=== PATIENT | female | born 1990 | race Two or more races ===

== ENCOUNTER 2025-02-20 13:26 | Outpatient (AMB) | payer OTHER, MEDICAID, SELFPAY ==
--- NOTE | 2025-02-20 13:44 | OBCLNT_ITS ---
Vital Signs 02/20/25 13:45 Weight 85.049 kg Weight Measurement Method Standing Scale BP 134/80 H Blood Pressure Source Automatic Cuff Blood Pressure Location Left Lower Arm Position Sitting Respiration 18 Pulse 76 Pulse Source Monitor Temp 97.2 F Temp Source Oral Pulse Oximetry (%) 98 Oxygen Delivery Method Room Air Allergies/Home Meds Allergies & Medications Allergies NKA* Allergy (Uncoded 02/20/25 13:46) Medication Reconciliation No Known Home Medications 02/20/25 [History Confirmed 02/20/25] Intake Visit Data Collection New Patient or Established: New Patient (never been to [facility]) Reason for Visit:: OBI Seen by Clinical Staff ONLY (RN/MA): No Laborer Tanbark Required: Yes Laborer Tanbark's name/title: CHAD BOOGIE MA Do You Feel Safe at Home: Yes Authorities Contacted: N/A PCP or OBGYN visit in last 3 months: Yes Hx Now: Yes Are you currently on any form of Control: No Last menstrual period: 11/15/24 Pain Present Currently: No Pain Scale Used: Atwood-Beatty/Numerical Pain scale:: 0 Smoking Status Smoking Status: Never smoker Questionnaires Covid-19 Vaccine Questionnaire Has patient been vacinated for Covid-19 Have you been vacinated for Covid-19: Yes PHQ-9 PHQ-2 Over the last 2 weeks, how often have you been bothered by any of the following problems? 1. Little interest or pleasure in doing things: not at all 2. Feeling down, depressed, or hopeless: not at all Total score: 0 PHQ-9 3. Trouble falling or staying asleep, or sleeping too much: Not at all 4. Feeling tired or having little energy: Not at all 5. Poor appetite or overeating: Not at all 6. Feeling bad about yourself - or that you are a failure or have let yourself or your family down: Not at all 7. Trouble concentrating on things, such as reading the newspaper or watching television: Not at all 8. Moving or speaking so slowly that other people could have noticed? - Or the opposite - being so fidgety or restless that you have been moving around a lot more than usual: not at all 9. Thoughts that you would be better off or of hurting yourself in some way: Not at all Total score: 0 If you checked off any problems, how difficult have these problems made it for you to do your work, take care of things at home, or get along with other people?: not difficult at all Source: Developed by Drs. Roland Pandey, Yesica Tapia, Romulo Rice and colleagues, with an educational beti from [employer]. Depression screen completed yes Social History Living Situation History Marital Status: Lives With: Family Housing: House Tobacco History Smoking Status: Never smoker Second Hand Smoke Exposure: No Alcohol History Alcohol Intake: Never Domestic Abuse History Do You Feel Safe at Home: Yes History of Present Illness HPI Narrative 34-year-old presenting for her first visit. She has a history of irregular menstrual cycles and is unsure of her last menstrual period, though she estimates it was on November 15. This is her second, with her first resulting in a full-term delivery in 2017 due to a large baby weighing 4082 grams. The patient reports no specific complaints or symptoms related to her current . She denies experiencing nausea or vomiting. The patient's bladder is noted to be full during the visit, which is relevant for the ultrasound examination. An in-office ultrasound was performed, revealing a viable intrauterine with a heartbeat of 167 beats per minute, which was noted to be normal. The measurements indicated a gestational age of 9 weeks and 2 days, which is smaller than expected based on the patient's reported last menstrual period. Obstetric History - GTPAL: G2 T1 P1001 L1 - Current : - Gestational age: 9 weeks 2 days by ultrasound (differs from LMP dating) - Last menstrual period: November 15, 2024 - history: - delivery in 2017, full term. weight 4082 grams. Medical History - History of irregular menstrual cycles Surgical History - section in 2017, full term delivery Social History - Travel: Plans to visit [place] Review of Systems Gastrointestinal: Negative for nausea, vomiting. OB Initial Visit OB Flowsheet OB Flowsheet Initial Weight: Not Recorded Date -?-?-?-?-?-?-?-?-?-?-?-?- EGA Weight BP Alb Glu CTX Pres Fundal ht FHR Mov Dilation Station Effacement Hx Notes Visit Note 02/20/25 -?-?-?-?-?-?-?-?-?-?-?-?- 13w 6d 85.049 kg 134/80 at 9w2d by ultrasound, presents for initial visit. LMP unknown due to irregular menses, possibly around 11/15. No nausea or vomiting. History of full-term in 2017 for macrosomia (4082g). Bedside ultrasound shows viable IUP with FHR 167 bpm; gestational age smaller than expected. Plan: Formal ultrasound for dating and v iability; initiate labs; provide education on hydration, especially for travel to [place]; follow-up after radiology dating scan. Monitor for growth and discuss vs repeat C- section in future visits. Menstrual History Menstrual reliability: approximate (month known) Flow: normal Menstrual regularity: irregular Monthly: Yes Age at menarche: 10 On control pills at conception: No OB History : 2 Para: 1 Hx # Pregnancies: 0 Hx Total # of Abortions (Spontaneous & Elective): 0 # of Living Children: 1 Delivery History 1st : date: 06/04/17 sex: female Delivery type: weight (lbs): 4082.331 g History of depression before or after : No Infection History & Risk Evaluation History of STDs: none HIV risk evaluation: low risk Hepatitis B risk evaluation: low risk Patient or partner has history of Genital Herpes: No Varicella/chicken pox status: immunized Genetic Screening & History Genetic Screening/Teratology Counseling - Includes patient, baby's father, or anyone in either family with: 1. Patient's age 35 years or older as of estimated date of delivery: Yes 2. Thalassemia (Persian, Nauruan, Mediterranean, or Background); MCV less than 80: No 3. Neural Tube Defect (Meningomyelocele, Spina Bifida, or Anencephaly): No 4. Congenital Heart Defect: No 5. Down Syndrome: No 6. Jacek-Sachs (Ashkenazi Religious, Cajun, Jamaican [place]): No 7. Ricco Disease (Ashkenazi Religious): No 8. Familial Dysautonomia (Ashkenazi Religious): No 9. Sickle Cell Disease or Trait (): No 10. Hemophilia or other blood disorders: No 11. Muscular Dystrophy: No 12. Cystic Fibrosis: No 13. Shikha's Chorea: No 14. Mental Retardation/Autism: No 15. Other inherited genetic or chromosomal disorder: No 16. Maternal Metabolic Disorder (EG,TYPE 1 Diabetes, PKU): No 17. Patient or baby's father had a child with defects not listed above: No 18. Recurrent loss or a stillbirth: No 19. Medications (including supplements, vitamins, herbs or otc drugs)/illicit/recreational drugs/alcohol since last menstrual period: No 20. Any other: No Infection History 1. Live with someone with TB or exposed to TB: No 2. Rash or viral illness since last menstrual period: No 3. Hepatitis B,C: No Other (see comments) Source: [employer] Office Procedures OB Clinic LOC & Office Proc's Nursing/Assessment Patient Status: Initial/New Patient OB Clinic Nursing Assessment: Medication Reconciliation, Update PMH in EMR and Vital Signs OB Clinic Coordination of Care: Consent,records obtained, informed consent, Education Simp Pt/Fam, Lab and Imaging orders, Results/Orders obtained and Staff clarify orders Special Needs: Heart tones and Language special needs New Patient Charge New Patient Point Assignment: [id number] New Patient Point Charge: PROGRESSIVE CARE UNIT REGISTERED NURSE Level 3 (9300-2249) Assessment & Plan Diagnosis / Problem List (1) Uterine size date discrepancy, antepartum: Status: Acute (2) Maternal care for unspecified type scar from previous delivery: Status: Acute (3) Supervision of high risk , unspecified, first trimester: Status: Acute Plan Jocelyn Herron is a 34-year-old presenting for her first visit with a history of irregular menstrual cycles and previous delivery in 2017 for macrosomia. Intrauterine Assessment: Patient presents for first visit. Last menstrual period reported as November 15, which would correspond to a gestational age of 12-13 weeks. However, bedside ultrasound reveals a single intrauterine with cardiac activity of 167 bpm, measuring 9 weeks and 2 days. This discrepancy suggests possible dates inaccuracy, likely due to the patient's history of irregular menstrual cycles. Plan: - Schedule formal ultrasound with radiology department for accurate dating and viability assessment - Initiate labs - Provide patient education on hydration, especially during travel - Follow up after ultrasound results are available to establish accurate due date and timeline History of delivery Assessment: Patient has a history of one previous delivery in 2017 at full term due to macrosomia ( weight 4082 grams). This history increases the risk for repeat delivery and potential complications in the current . Plan: - Monitor growth closely throughout - Discuss risks and benefits of vaginal after () versus repeat delivery at subsequent visits - Plan for appropriate mode of delivery based on ongoing assessment of maternal and factors
[2025-02-20 13:45] VITALS: BP 134/80; PULSE 76; RESP 18; TEMP 36.2; O2SAT 98
== END 2025-02-20 14:31 | disposition home or self-care (01) ==
LOC: HODSOBC 13:26
PROVIDERS: Supervising Provider Obstetrics & Gynecology; Visit Provider Obstetrics & Gynecology
DX: O09.521 Supervision of elderly multigravida, first trimester (principal); O09.891 Supervision of other high risk pregnancies, first trimester; O26.841 Uterine size-date discrepancy, first trimester; O09.291 Supervision of pregnancy with other poor reproductive or obstetric history, first trimester; O34.219 Maternal care for unspecified type scar from previous cesarean delivery; Z3A.13 13 weeks gestation of pregnancy
CPT/HCPCS: 76801; 99203; G0463

== ENCOUNTER 2025-07-16 11:07 | Outpatient (AMB) | payer MEDICAID, SELFPAY ==
--- NOTE | 2025-07-16 11:14 | OBCLNT_ITS ---
Vital Signs 07/16/25 11:52 Weight 88.224 kg Weight Measurement Method Standing Scale BP 131/81 H Blood Pressure Source Automatic Cuff Blood Pressure Location Left Upper Arm Position Sitting Respiration 18 Pulse 76 Pulse Source Monitor Temp 97.2 F Temp Source Oral Pulse Oximetry (%) 98 Oxygen Delivery Method Room Air Allergies/Home Meds Allergies & Medications Allergies NKA* Allergy (Uncoded 07/16/25 11:53) Medication Reconciliation clotrimazole 1 % vaginal cream 1 appful vaginal QHS #45 grams 07/16/25 [Rx] Intake Visit Data Collection New Patient or Established: Established Patient (seen at [facility] within 3 years) Reason for Visit:: OBC Seen by Clinical Staff ONLY (RN/MA): No Poolroom/Poolhall Manager Required: Yes Poolroom/Poolhall Manager's name/title: WYATT BOOGIE MA Do You Feel Safe at Home: Yes Authorities Contacted: N/A PCP or OBGYN visit in last 3 months: Yes Date of Last PCP or OBGYN visit: 07/16/25 Hx Now: Yes Are you currently on any form of Control: No Last menstrual period: 11/15/24 Pain Present Currently: No Pain Scale Used: Atwood-Beatty/Numerical Pain scale:: 0 Smoking Status Smoking Status: Never smoker Immunizations Flu Vaccine in the Last 12 Months: No Flu Vaccine Exclusion Criteria: No Exclusion Criteria Questionnaires PHQ-9 PHQ-2 Over the last 2 weeks, how often have you been bothered by any of the following problems? 1. Little interest or pleasure in doing things: not at all 2. Feeling down, depressed, or hopeless: not at all Total score: 0 PHQ-9 3. Trouble falling or staying asleep, or sleeping too much: Not at all 4. Feeling tired or having little energy: Not at all 5. Poor appetite or overeating: Not at all 6. Feeling bad about yourself - or that you are a failure or have let yourself or your family down: Not at all 7. Trouble concentrating on things, such as reading the newspaper or watching television: Not at all 8. Moving or speaking so slowly that other people could have noticed? - Or the opposite - being so fidgety or restless that you have been moving around a lot more than usual: not at all 9. Thoughts that you would be better off or of hurting yourself in some way: Not at all Total score: 0 If you checked off any problems, how difficult have these problems made it for you to do your work, take care of things at home, or get along with other people?: not difficult at all Source: Developed by Drs. Roland Pandey, Yesica Tapia, Romulo Rice and colleagues, with an educational beti from [employer]. Social History Living Situation History Marital Status: Single Lives With: Family Housing: House Tobacco History Smoking Status: Never smoker Second Hand Smoke Exposure: No Alcohol History Alcohol Intake: Never Domestic Abuse History Do You Feel Safe at Home: Yes OB Initial Visit OB Flowsheet OB Flowsheet Initial Weight: Not Recorded Date -?-?-?-?-?-?-?-?-?-?-?-?- EGA Weight BP Alb Glu CTX Pres Fundal ht FHR Mov Dilation Station Effacement Hx Notes Visit Note 02/20/25 -?-?-?-?-?-?-?-?-?-?-?-?- 11w 1d 85.049 kg 134/80 at 9w2d by ultrasound, presents for initial visit. LMP unknown due to irregular menses, possibly around 11/15. No nausea or vomiting. History of full-term in 2017 for macrosomia (4082g). Bedside ultrasound shows viable IUP with FHR 167 bpm; gestational age smaller than expected. Plan: Formal ultrasound for dating and v iability; initiate labs; provide education on hydration, especially for travel to [place]; follow-up after radiology dating scan. Monitor for growth and discuss vs repeat C- section in future visits. 07/16/25 -?-?-?-?-?-?-?-?-?-?-?-?- 32w 0d 88.224 kg 131/81 absent cephalic 32 136 active 37 follow up in 2 weeks Menstrual History Flow: normal Menstrual regularity: regular Monthly: Yes Age at menarche: 8 On control pills at conception: No OB History : 2 Para: 1 # of Living Children: 1 Delivery History 1st : Child's name: NA date: 06/04/17 sex: female Delivery type: History of depression before or after : No Infection History & Risk Evaluation History of STDs: none HIV risk evaluation: low risk Hepatitis B risk evaluation: low risk Patient or partner has history of Genital Herpes: No Varicella/chicken pox status: immunized Genetic Screening & History Genetic Screening/Teratology Counseling - Includes patient, baby's father, or anyone in either family with: 1. Patient's age 35 years or older as of estimated date of delivery: Yes 2. Thalassemia (Occitan, Lithuanian, Mediterranean, or Background); MCV less than 80: No 3. Neural Tube Defect (Meningomyelocele, Spina Bifida, or Anencephaly): No 4. Congenital Heart Defect: No 5. Down Syndrome: No 6. Jacek-Sachs (Ashkenazi Temple, Cajun, Kazakh [place]): No 7. Ricco Disease (Ashkenazi Temple): No 8. Familial Dysautonomia (Ashkenazi [place]): No 9. Sickle Cell Disease or Trait (): No 10. Hemophilia or other blood disorders: No 11. Muscular Dystrophy: No 12. Cystic Fibrosis: No 13. Stoughton's Chorea: No 14. Mental Retardation/Autism: No 15. Other inherited genetic or chromosomal disorder: No 16. Maternal Metabolic Disorder (EG,TYPE 1 Diabetes, PKU): No 17. Patient or baby's father had a child with defects not listed above: No 18. Recurrent loss or a stillbirth: No 19. Medications (including supplements, vitamins, herbs or otc drugs)/illic it/recreational drugs/alcohol since last menstrual period: No 20. Any other: No Infection History 1. Live with someone with TB or exposed to TB: No 2. Rash or viral illness since last menstrual period: No 3. Hepatitis B,C: No Other (see comments) Source: [employer] [place] [employer] [employer] Results Objective Imaging: done Dr Lebron 05/23/2025 Office Procedures OBC Clinic LOC & Office Proc's Nursing/Assessment Patient Status: Established Patient OB Clinic Nursing Assessment: Medication Reconciliation, Update PMH in EMR and Vital Signs OB Clinic Coordination of Care: Consent,records obtained, informed consent, Education Simp Pt/Fam, Lab and Imaging orders and Staff clarify orders Special Needs: Heart tones Established Patient Charge Established Patient Point Assignment: 105 Established Patient Point Charge: EP Level 3 (80-115) Assessment & Plan Diagnosis / Problem List (1) Supervision of high risk , unspecified, first trimester: Status: Acute (2) Maternal care for unspecified type scar from previous delivery: Status: Acute Plan: 35 years at 32 weeks and she is a transfer from [facility] and is a previous c section Dating by 18.[address] Lebron in March 2025 Plan repeat LTCS on 09/05/2025t 12.30 pm follow up prental vist in 2 weeks here she has vaginal itching and positive for Laura albicans in the past (3) Vaginitis affecting in second trimester, antepartum: Status: Acute (4) Advanced maternal age (AMA) in : Status: Acute
[2025-07-16 11:52] VITALS: BP 131/81; PULSE 76; RESP 18; TEMP 36.2; O2SAT 98
== END 2025-07-16 12:08 | disposition home or self-care (01) ==
LOC: HODSOBC 11:07
PROVIDERS: Supervising Provider Obstetrics & Gynecology; Visit Provider Obstetrics & Gynecology
DX: O09.523 Supervision of elderly multigravida, third trimester (principal); O09.293 Supervision of pregnancy with other poor reproductive or obstetric history, third trimester; O34.211 Maternal care for low transverse scar from previous cesarean delivery; O09.893 Supervision of other high risk pregnancies, third trimester; O23.593 Infection of other part of genital tract in pregnancy, third trimester; N76.0 Acute vaginitis; Z3A.32 32 weeks gestation of pregnancy
CPT/HCPCS: 99213; G0463

== ENCOUNTER 2025-07-23 09:24 | Outpatient (AMB) | payer MEDICAID, SELFPAY ==
--- NOTE | 2025-07-23 09:32 | OBCLNT_ITS ---
Allergies/Home Meds Allergies & Medications Allergies NKA* Allergy (Uncoded 07/16/25 11:53) Intake Visit Data Collection New Patient or Established: Established Patient (seen at [facility] within 3 years) Reason for Visit:: DISABILITY FORMS Consent obtained for Telemed Visit: Yes Seen by Clinical Staff ONLY (RN/MA): No Methane Gas Collection System Operator Required: Yes Methane Gas Collection System Operator's name/title: FABIO VEGA Do You Feel Safe at Home: Yes Authorities Contacted: N/A Hx Now: Yes Smoking Status Smoking Status: Never smoker Questionnaires PHQ-9 PHQ-2 Over the last 2 weeks, how often have you been bothered by any of the following problems? 1. Little interest or pleasure in doing things: not at all PHQ-9 8. Moving or speaking so slowly that other people could have noticed? - Or the opposite - being so fidgety or restless that you have been moving around a lot more than usual: not at all Source: Developed by Drs. Roland Pandey, Yesica Tapia, Romulo Rice and colleagues, with an educational beti from [employer]. 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 Care OB Visit Log OB Flowsheet Initial Weight: Not Recorded Date -?-?-?-?-?-?-?-?-?-?-?-?- EGA Weight BP Alb Glu CTX Pres Fundal ht FHR Mov Dilation Station Effacement Hx Notes Visit Note 02/20/25 -?-?-?-?-?-?-?-?-?-?-?-?- 11w 1d 85.049 kg 134/80 at 9w2d by ultrasound, presents for initial visit. LMP unknown due to irregular menses, possibly around 11/15. No nausea or vomiting. History of full-term in 2017 for macrosomia (4082g). Bedside ultrasound shows viable IUP with FHR 167 bpm; gestational age smaller than expected. Plan: Formal ultrasound for dating and v iability; initiate labs; provide education on hydration, especially for travel to [place]; follow-up after radiology dating scan. Monitor for growth and discuss vs repeat C- section in future visits. 07/16/25 -?-?-?-?-?-?-?-?-?-?-?-?- 32w 0d 88.224 kg 131/81 absent cephalic 32 136 active 37 follow up in 2 weeks 07/23/25 -?-?-?-?-?-?-?-?-?-?-?-?- 33w 0d KAMILAH Calculator Estimated Delivery Date Method Current WG Current Estimate 09/10/25 Ultrasound #1 33w 0d Other Estimates 08/22/25 LMP (Uncertain) 35w 5d Notes Visit Date: 07/23/25 Last Updated by: Destiny Dimas MD 35 years old , AMA Previous LTCS and EDC by an 18.3 week US done 04/12/[address] Bernardino JAIME carrier / Plan repeat LTCS at 39 weeks / Glucose test done at [facility] and is normal / Plan C section around 39 weeks telephone visit today and requesting disability starting now as she works in a [employer] house 33 weeks today and can start disability now Visit Date: 07/16/25 Last Updated by: Destiny Dimas MD 35 years old , AMA Previous LTCS and EDC by an 18.3 week US done 04/12/[address] Bernardino JAIME carrier / Plan repeat LTCS at 39 weeks / Glucose test done at [facility] and is normal / Plan C section around 39 weeks Office Procedures OBC Clinic LOC & Office Proc's Telehealth If patient is seen using Teleconference methods, complete New/Est section, but DO NOT shikha points only shikha the correct Telemed visit type Telemed Phone/Video with patient at home & ,[place],EMPLOYMENT LAW SPECIALIST: Yes Assessment & Plan Diagnosis / Problem List (1) Advanced maternal age (AMA) in : Status: Acute Plan: continue care (2) Maternal care for unspecified type scar from previous delivery: Status: Acute Qualifiers: Previous scar type: low transverse Qualified Code(s): O34.211 - Maternal care for low transverse scar from previous delivery Assessment and Plan: Plan repeat LTCS at 39 weeks (3) Pelvic pressure in female: Status: Acute Plan: start disability from now . Follow up as scheduled for in person appointment
== END 2025-07-23 10:29 | disposition home or self-care (01) ==
LOC: HODSOBC 09:24
PROVIDERS: PCP Family Medicine; Referring Provider Family Medicine; Supervising Provider Obstetrics & Gynecology; Visit Provider Obstetrics & Gynecology
DX: O09.523 Supervision of elderly multigravida, third trimester (principal); O09.293 Supervision of pregnancy with other poor reproductive or obstetric history, third trimester; O34.211 Maternal care for low transverse scar from previous cesarean delivery; Z3A.33 33 weeks gestation of pregnancy
CPT/HCPCS: 99212; G0463

== ENCOUNTER 2025-08-08 09:46 | Outpatient (AMB) | payer MEDICAID, SELFPAY ==
[2025-08-08 10:00] VITALS: BP 126/81; PULSE 97; RESP 18; TEMP 36.6; O2SAT 98; BMI 33.1
--- NOTE | 2025-08-08 10:00 | OBCLNT_ITS ---
Vital Signs 08/08/25 10:00 Height 1.65 m Height Method Stated Weight 90.265 kg Weight Measurement Method Standing Scale BMI 33.1 BP 126/81 Blood Pressure Source Automatic Cuff Blood Pressure Location Left Upper Arm Position Sitting Respiration 18 Pulse 97 Pulse Source Monitor Temp 97.8 F Temp Source Oral Pulse Oximetry (%) 98 Oxygen Delivery Method Room Air Allergies/Home Meds Allergies & Medications Allergies NKA* Allergy (Uncoded 08/08/25 10:01) Medication Reconciliation clotrimazole 1 % vaginal cream 1 appful vaginal QHS #45 grams 07/16/25 [Rx Confirmed 08/08/25] Immunizations Immunizations Flu Vaccine in the Last 12 Months: Yes Date of most recent flu vaccination: 07/11/25 Flu Vaccine Exclusion Criteria: Already Received Care OB Visit Log OB Flowsheet Initial Weight: Not Recorded Date -?-?-?-?-?-?-?-?-?-?-?-?- EGA Weight BP Alb Glu CTX Pres Fundal ht FHR Mov Dilation Station Effacement Hx Notes Visit Note 02/20/25 -?-?-?-?-?-?-?-?-?-?-?-?- 11w 1d 85.049 kg 134/80 at 9w2d by ultrasound, presents for initial visit. LMP unknown due to irregular menses, possibly around 11/15. No nausea or vomiting. History of full-term in 2017 for macrosomia (4082g). Bedside ultrasound shows viable IUP with FHR 167 bpm; g estational age smaller than expected. Plan: Formal ultrasound for dating and v iability; initiate labs; provide education on hydration, especially for travel to [place]; follow-up after radiology dating scan. Monitor for growth and discuss vs repeat C- section in future visits. 07/16/25 -?-?-?-?-?-?-?-?-?-?-?-?- 32w 0d 88.224 kg 131/81 absent cephalic 32 136 active 37 follow up in 2 weeks 07/23/25 -?-?-?-?-?-?-?-?-?-?-?-?- 33w 0d 08/08/25 -?-?-?-?-?-?-?-?-?-?-?-?- 35w 2d 90.265 kg 126/81 absent cephalic 35 130 active 0 GBS taken explained r/b and options of repeat LTCS KAMILAH Calculator Estimated Delivery Date Method Current WG Current Estimate 09/10/25 Ultrasound #1 35w 2d Other Estimates 08/22/25 LMP (Uncertain) 38w 0d Notes Visit Date: 08/08/25 Last Updated by: Destiny Dimas MD scheduled for repeat LTCS on at 12.30 pm at [facility] Follow up in 1 week Visit Date: 07/23/25 Last Updated by: Destiny Dimas MD 35 years old , AMA Previous LTCS and EDC by an 18.3 week US done 04/12/[address] Bernardino JAIME carrier / Plan repeat LTCS at 39 weeks / Glucose test done at [facility] and is normal / Plan C section around 39 weeks telephone visit today and requesting disability starting now as she works in a [employer] house 33 weeks today and can start disability now Visit Date: 07/16/25 Last Updated by: Destiny Dimas MD 35 years old , AMA Previous LTCS and EDC by an 18.3 week US done 04/12/[address] Bernardino JAIME carrier / Plan repeat LTCS at 39 weeks / Glucose test done at [facility] and is normal / Plan C section around 39 weeks Office Procedures OBC Clinic LOC & Office Proc's Nursing/Assessment Patient Status: Established Patient OB Clinic Nursing Assessment: Medication Reconciliation, Update PMH in EMR and Vital Signs OB Clinic Coordination of Care: AMA, Complex Care and Chronic Disease 1-5, C onsent,records obtained, informed consent, Education Simp Pt/Fam, 1 Ins Authorization, Lab and Imaging orders, Results/Orders obtained and Staff clarify orders Special Needs: Heart tones Established Patient Charge Established Patient Point Assignment: 170 Established Patient Point Charge: EP Level 5 (160-above) Assessment & Plan Diagnosis / Problem List (1) Maternal care for unspecified type scar from previous delivery: Status: Acute Qualifiers: Previous scar type: low transverse Qualified Code(s): O34.211 - Maternal care for low transverse scar from previous delivery (2) Advanced maternal age (AMA) in : Status: Acute Plan HISTORY OF PRESENT ILLNESS AI Consent obtained: I, Dr. Dimas, have obtained verbal consent from the patient, to be recorded during this encounter which may include, but not limited to, medical history, examination, treatment plans, and relevant health information. Patient was informed that recording will be read and reviewed by myself before inclusion in the medical chart. Recordings will be maintained in accordance with State and Federal law and only for a limited period of time for validation purposes, then destroyed and not retained. The patient presents for evaluation of . She is accompanied by an youth specialist. She is currently in her second , with a gestational age of 35 weeks and 2 days. She has expressed a desire to have more children in the future. She has been scheduled for a on 09/05/2025 at 12:30 PM due to a previous C- section. She has an upcoming appointment on 08/21/2025 to monitor the growth and movement of the baby. PHYSICAL EXAM Cardiovascular: heart rate is 127-130 beats per minute. ASSESSMENT AND PLAN 1. : - Currently 35 weeks and 2 days . A is scheduled for 09/05/2025 at 12:30 PM due to a previous . - Risks associated with the procedure, including infection, bleeding, and potential injury to surrounding organs, have been discussed. A vaginal culture will be obtained today to check for the presence of GBS bacteria, which could necessitate closer monitoring of the baby. - Advised to seek immediate medical attention if water breaks, labor commences prematurely, or if there are any concerns regarding movement. Follow-up: The patient will follow up next week.
== END 2025-08-08 10:47 | disposition home or self-care (01) ==
PROVIDERS: Supervising Provider Obstetrics & Gynecology; Visit Provider Obstetrics & Gynecology
DX: O09.293 Supervision of pregnancy with other poor reproductive or obstetric history, third trimester (principal); O34.211 Maternal care for low transverse scar from previous cesarean delivery; O09.523 Supervision of elderly multigravida, third trimester; Z3A.35 35 weeks gestation of pregnancy; Z36.85 Encounter for antenatal screening for Streptococcus B
CPT/HCPCS: 99215; G0463

== ENCOUNTER 2025-08-20 09:08 | Outpatient (AMB) | payer MEDICAID, SELFPAY ==
--- NOTE | 2025-08-20 09:42 | OBCLNT_ITS ---
Vital Signs 08/20/25 09:49 Height 1.65 m Height Method Stated Weight 89.811 kg Weight Measurement Method Standing Scale BMI 33.0 BP 126/74 Blood Pressure Source Automatic Cuff Blood Pressure Location Right Upper Arm Position Sitting Respiration 18 Pulse 87 Pulse Source Monitor Temp 98.2 F Temp Source Oral Pulse Oximetry (%) 98 Oxygen Delivery Method Room Air Allergies/Home Meds Allergies & Medications Allergies NKA* Allergy (Uncoded 08/20/25 09:50) Medication Reconciliation clotrimazole 1 % vaginal cream 1 appful vaginal QHS #45 grams 07/16/25 [Rx Confirmed 08/20/25] Immunizations Immunizations Flu Vaccine in the Last 12 Months: Yes Flu Vaccine Exclusion Criteria: Already Received Care OB Visit Log OB Flowsheet Initial Weight: Not Recorded Date -?-?-?-?-?-?-?-?-?-?-?-?- EGA Weight BP Alb Glu CTX Pres Fundal ht FHR Mov Dilation Station Effacement Hx Notes Visit Note 02/20/25 -?-?-?-?-?-?-?-?-?-?-?-?- 11w 1d 85.049 kg 134/80 at 9w2d by ultrasound, presents for initial visit. LMP unknown due to irregular menses, possibly around 11/15. No nausea or vomiting. History of full-term in 2017 for macrosomia (4082g). Bedside ultrasound shows viable IUP with FHR 167 bpm; gestational age smaller than expected. Plan: Formal ultrasound for dating and v iability; initiate labs; provide education on hydration, especially for travel to [place]; follow-up after radiology dating scan. Monitor for growth and discuss vs repeat C- section in future visits. 07/16/25 -?-?-?-?-?-?-?-?-?-?-?-?- 32w 0d 88.224 kg 131/81 absent cephalic 32 136 active 37 follow up in 2 weeks 07/23/25 -?-?-?-?-?-?-?-?-?-?-?-?- 33w 0d 08/08/25 -?-?-?-?-?-?-?-?-?-?-?-?- 35w 2d 90.265 kg 126/81 absent cephalic 35 130 active 0 GBS taken explained r/b and options of repeat LTCS 08/20/25 -?-?-?-?-?-?-?-?-?-?-?-?- 37w 0d 89.811 kg 126/74 absent cephalic 37 135 active GBS negative / Plan repeat LTCS on 09/05/2025 at 1230 KAMILAH Calculator Estimated Delivery Date Method Current WG Current Estimate 09/10/25 Ultrasound #1 37w 0d Other Estimates 08/22/25 LMP (Uncertain) 39w 5d Notes Visit Date: 08/08/25 Last Updated by: Destiny Dimas MD scheduled for repeat LTCS on at 12.30 pm at [facility] Follow up in 1 week Visit Date: 07/23/25 Last Updated by: Destiny Dimas MD 35 years old , AMA Previous LTCS and EDC by an 18.3 week US done 04/12/[address] Bernardino JAIME carrier / Plan repeat LTCS at 39 weeks / Glucose test done at [facility] and is normal / Plan C section around 39 weeks telephone visit today and 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 Visit Date: 07/16/25 Last Updated by: Destiny Dimas MD 35 years old , AMA Previous LTCS and EDC by an 18.3 week US done 04/12/[address] Bernardino JAIME carrier / Plan repeat LTCS at 39 weeks / Glucose test done at [facility] and is normal / Plan C section around 39 weeks Office Procedures OBC Clinic LOC & Office Proc's Nursing/Assessment Patient Status: Established Patient OB Clinic Nursing Assessment: Medication Reconciliation, Update PMH in EMR and Vital Signs OB Clinic Coordination of Care: Consent,records obtained, informed consent, Education Simp Pt/Fam, Lab and Imaging orders, Results/Orders obtained and Staff clarify orders Special Needs: Heart tones Established Patient Charge Established Patient Point Assignment: 110 Established Patient Point Charge: EP Level 3 (80-115) Assessment & Plan Diagnosis / Problem List (1) Advanced maternal age (AMA) in : Status: Acute (2) Maternal care for unspecified type scar from previous delivery: Status: Acute Qualifiers: Previous scar type: low transverse Qualified Code(s): O34.211 - Maternal care for low transverse scar from previous delivery (3) 37 weeks gestation of : Status: Acute Additional Assessment 35 years old with prior c section at 37 weeks / appropriate growth and follow up in 1 week / Repeat LTCS at 39 weeks
[2025-08-20 09:49] VITALS: BP 126/74; PULSE 87; RESP 18; TEMP 36.8; O2SAT 98; BMI 33.0
== END 2025-08-20 10:28 | disposition home or self-care (01) ==
LOC: HODSOBC 09:08
PROVIDERS: Supervising Provider Obstetrics & Gynecology; Visit Provider Obstetrics & Gynecology
DX: O09.523 Supervision of elderly multigravida, third trimester (principal); O09.293 Supervision of pregnancy with other poor reproductive or obstetric history, third trimester; O34.211 Maternal care for low transverse scar from previous cesarean delivery; Z3A.37 37 weeks gestation of pregnancy
CPT/HCPCS: 99213; G0463

== ENCOUNTER 2025-08-27 11:11 | Outpatient (AMB) | payer MEDICAID, SELFPAY ==
--- NOTE | 2025-08-27 11:14 | AMB.OBPNC ---
Vital Signs 08/27/25 11:17 Height 1.65 m Height Method Stated Weight 91.342 kg Weight Measurement Method Standing Scale BMI 33.5 BP 118/78 Blood Pressure Source Automatic Cuff Blood Pressure Location Left Upper Arm Position Sitting Respiration 16 Pulse 83 Pulse Source Monitor Temp 97.8 F Temp Source Oral Pulse Oximetry (%) 98 Oxygen Delivery Method Room Air Allergies/Home Meds Allergies & Medications Allergies No Known Allergies Allergy (Verified 09/05/25 05:49) Medication Reconciliation vits no.130-ferrous fum 27 mg iron-folic acid 800 mcg tablet ( Vitamin) 1 tab PO QDAY 09/05/25 [History Confirmed 09/05/25] hydrocodone 5 mg-acetaminophen 325 mg tablet 1 tab PO Q4HR PRN Patient rated pain 7 to 8 #10 tabs 09/06/25 [Rx] Immunizations Immunizations Flu Vaccine in the Last 12 Months: Yes Flu Vaccine Exclusion Criteria: Already Received Care OB Visit Log OB Flowsheet Initial Weight: Not Recorded Date <del>?</del> EGA Weight BP Alb Glu CTX Pres Fundal ht FHR Mov Dilation Station Effacement Hx Notes Visit Note 02/20/25 <del>?</del> 11w 1d 85.049 kg 134/80 at 9w2d by ultrasound, presents for initial visit. LMP unknown due to irregular menses, possibly around 11/15. No nausea or vomiting. History of full-term in 2017 for macrosomia (4082g). Bedside ultrasound shows viable IUP with FHR 167 bpm; gestational age smaller than expected. Plan: Formal ultrasound for dating and viability; initiate labs; provide education on hydration, especially for travel to [place]; follow-up after radiology dating scan. Monitor for growth and discuss vs repeat in future visits. 07/16/25 <del>?</del> 32w 0d 88.224 kg 131/81 absent cephalic 32 136 active 37 follow up in 2 weeks 07/23/25 <del>?</del> 33w 0d 08/08/25 <del>?</del> 35w 2d 90.265 kg 126/81 absent cephalic 35 130 active 0 GBS taken explained r/b and options of repeat LTCS 08/20/25 <del>?</del> 37w 0d 89.811 kg 126/74 absent cephalic 37 135 active GBS negative / Plan repeat LTCS on 09/05/2025 at 1230 08/27/25 <del>?</del> 38w 0d 91.342 kg 118/78 absent cephalic 38 130 active KAMILAH Calculator Estimated Delivery Date Method Current WG Current Estimate 09/10/25 Ultrasound #1 39w 3d Other Estimates 08/22/25 LMP (Uncertain) 42w 1d Notes Visit Date: 08/27/25 Last Updated by: Destiny Dimas MD Patient is scheduled for repeat LTCS on 09/05/2025 at 12.30 pm / bedside US shows active baby and normal Amniotic fluid / cephalic /patient given labor precautions/ R/B and options of c section and she is to go for pre op labs on 09/04/2025 and NPO for 8 hours for repeat LTCS on 09/05/2025 All her questions answered Visit Date: 08/08/25 Last Updated by: Destiny Dimas MD scheduled for repeat LTCS on at 12.30 pm at [facility] Follow up in 1 week Visit Date: 07/23/25 Last Updated by: Destiny Dimas MD 35 years old , AMA Previous LTCS and EDC by an 18.3 week US done 04/12/[address] Bernardino JAIME carrier / Plan repeat LTCS at 39 weeks / Glucose test done at [facility] and is normal / Plan C section around 39 weeks telephone visit today and 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 Visit Date: 07/16/25 Last Updated by: Destiny Dimas MD 35 years old , AMA Previous LTCS and EDC by an 18.3 week US done 04/12/[address] Bernardino JAIME carrier / Plan repeat LTCS at 39 weeks / Glucose test done at [facility] and is normal / Plan C section around 39 weeks Office Procedures OBC Clinic LOC & Office Proc's Nursing/Assessment Patient Status: Established Patient OB Clinic Nursing Assessment: Medication Reconciliation, Update PMH in EMR and Vital Signs OB Clinic Coordination of Care: AMA, Complex Care and Chronic Disease 1-5, Consent,records obtained, informed consent, Education Simp Pt/Fam, 1 Ins Authorization, Lab and Imaging orders, Results/Orders obtained and Staff clarify orders Special Needs: Heart tones Established Patient Charge Established Patient Point Assignment: 170 Established Patient Point Charge: EP Level 5 (160-above) Assessment & Plan Additional Plan Patient is scheduled for repeat LTCS on 09/05/2025 at 12.30 pm / bedside US shows active baby and normal Amniotic fluid / cephalic /patient given labor precautions/ R/B and options of c section and she is to go for pre op labs on 09/04/2025 and NPO for 8 hours for repeat LTCS on 09/05/2025 All her questions answered
[2025-08-27 11:17] VITALS: BP 118/78; PULSE 83; RESP 16; TEMP 36.6; O2SAT 98; BMI 33.5
== END 2025-08-27 12:08 | disposition home or self-care (01) ==
LOC: HODSOBC 11:11
PROVIDERS: Supervising Provider Obstetrics & Gynecology; Visit Provider Obstetrics & Gynecology
DX: O09.293 Supervision of pregnancy with other poor reproductive or obstetric history, third trimester (principal); O34.211 Maternal care for low transverse scar from previous cesarean delivery; O09.523 Supervision of elderly multigravida, third trimester; Z3A.38 38 weeks gestation of pregnancy
CPT/HCPCS: 99215; G0463

== ENCOUNTER 2025-09-05 04:53 | Inpatient (IN) | payer MEDICAID, SELFPAY ==
[2025-09-05] VITALS (16 sets, daily range): BP systolic 102–154; BP diastolic 48–85; PULSE 72–105; RESP 13–28; TEMP 36.4–37.2; O2SAT 97–100; BMI 35.3
[2025-09-05] MEDS: RINGERS LACTATED 1000 ML 1,000 ML 100 ML IV ×2 (05:57→07:37)
[2025-09-05 06:21] LABS: Amphetamine/Metham Scrn,Ur OB Negative (Negative); Benzoylecgonine Screen, Ur OB Negative (Negative); Opiate Screen,Urine OB Negative (Negative); THC Screen,Urine OB Negative (Negative)
[2025-09-05 06:23] LABS: Basophils # (Auto) 0.0 Thou/mm3 (0.0-0.2); Basophils % (Auto) 0 % (0-2.5); Eosinophils # (Auto) 0.1 Thou/mm3 (0.0-0.5); Eosinophils % (Auto) 2 % (0-10); Hematocrit 36.4 % (36.0-46.0); Hemoglobin 12.4 g/dL (12.0-16.0); Immature Granulocytes Auto 0.08 Thou/mm3 (0.00-0.00); Lymphocytes # (Auto) 1.2 Thou/mm3 (1.0-4.8); Lymphocytes % (Auto) 18 % (10-50); Mean Corpuscular HGB Conc 34.1 g/dl (31.0-37.0); Mean Corpuscular Hemoglobin 28.9 pg (25.0-35.0); Mean Corpuscular Volume 85 fL (80-100); Monocytes # (Auto) 0.7 Thou/mm3 (0.0-0.8); Monocytes % (Auto) 9 % (0-12); Neutrophils # (Auto) 4.8 Thou/mm3 (1.8-7.7); Neutrophils % (Auto) 70 % (37-80); Nucleated Red Blood Cell # 0.00 Thou/mm3 (0.00-0.00); Nucleated Red Blood Cell % 0 /100 WBC (0); Platelet Count 230 Thou/mm3 (140-440); RDW Standard Deviation 49.1 fL (36.4-46.3); Red Blood Count 4.29 Miln/mm3 (4.00-5.20); White Blood Count 6.9 Thou/mm3 (3.6-11.0)
[2025-09-05 07:01] LABS: Syphilis Nonreactive (Nonreactive)
--- NOTE | 2025-09-05 07:30 | PD.LDHP ---
Documentation for date of: 09/05/25 OB Labor/Induct. HPI History of Present Illness Chief complaint: 35 years old previous c section here for repeat LTCS : 2 pregnancies: 0 Living children: 1 History of Abortions: Spontaneous and Elective: 0 History of sections: Yes History of : No Date of last menstrual period: 11/15/24 KAMILAH: 09/10/25 Gestational Age (weeks): 39 Gestational Age (days): 2 Gestational age based on last menstrual period: 42 History of present illness: ?35 Years old G2?P?1at gestational age?39 .2weeks / repeat LTCS No complaints so far Ultrasound see record done 18.3 weeks on 04/12/2025 medical problems obesity Allergies NKDA Surgical history prior c section social history negative Labs Labs: Positive: Rubella Titre, Negative: RPR, Hepatitis B, HIV, Chlamydia, Gonorrhea and Group Beta Strep and Unknown: Herpes Type 1 and Herpes Type 2 Review of Systems Review of Systems Systems Reviewed: All systems reviewed, normal except as documented Past Medical History Past Medical History GASTROINTESTINAL: Positive Obesity Surgical History SURGICAL: Positive Section Meds Home Medications and Allergies Home Medications ?Medication ?Instructions ?Recorded ?Confirmed ?Type vits no.130-ferrous fum 1 tab PO QDAY 09/05/25 09/05/25 History 27 mg iron-folic acid 800 mcg tablet ( Vitamin) Allergies Allergy/AdvReac Type Severity Reaction Status Date / Time No Known Allergies Allergy Verified 09/05/25 05:49 OB Exam Physical Exam Vital signs: Pulse BP 88 123/78 09/05/25 05:47 09/05/25 05:47 Narrative: Size equal to dates uterus non tender Occasional/ contractions non tender FHR is category 1 feta presentation is vertex OB Results Labs 09/05/25 05:45 Labs: Short CBC 09/05/25 Range/Units 05:45 WBC 6.9 (3.6-11.0) Thou/mm3 Hgb 12.4 (12.0-16.0) g/dL Hct 36.4 (36.0-46.0) % Plt Count 230 (140-440) Thou/mm3 OB Assessment & Plan Assessment and Plan (1) Pelvic pressure in female: Status: Acute (2) Advanced maternal age (AMA) in : Status: Acute (3) Maternal care for unspecified type scar from previous delivery: Status: Acute (4) 39 weeks gestation of : Status: Acute Additional Plan Additional Plan Comment: Patient was given the reason for proceeding with surgery. She was given the risk benefits and options. She chose to proceed with the surgery. Risks of surgery to include risk of infection bleeding, possible injury to the surrounding organs like the urinary bladder, intestines, ureter, uterus, tubes, ovaries, nerves, blood vessels, possible risk of wound dehiscence later on or hernia development later on in future. However the surgery is done when the benefits outweigh the risks Possible risks of blood transfusion and options were also discussed. All questions answered Patient willing to proceed with surgery./ Plan to repeat LTCS now (3) Maternal care for unspecified type scar from previous delivery Qualifiers: Previous scar type: low transverse Qualified Code(s): O34.211 - Maternal care for low transverse scar from previous delivery
[2025-09-05] MEDS: ceFAZolin/D5W 2 GM IV 2 GM/100 ML BAG IV (07:32)
[2025-09-05] MEDS: FAMOTIDINE INJ 10 MG/ML VIAL 2 ML 20 MG IV (07:32)
[2025-09-05] MEDS: METOCLOPRAMIDE INJ 5 MG/ML VIAL 2 ML 10 MG IVP (07:32)
--- NOTE | 2025-09-05 08:47 | ESOP_ITS ---
Operative Note - [employer] CASE MANAGER Procedure Date of procedure: 09/05/25 Procedure Performed: repeat LTCS at 39.2 weeks Indication: previous c section AMA 39.2 weeks Pre-Op diagnosis: 39.2 weeks IUP with previous c section Post-Op diagnosis: same Anesthesia type: Spinal Procedure description: After an informed consent patient was taken to the operating room, she was prepped and draped in the usual sterile fashion after receiving spinal anesthesia. A timeout was done. Surgical site infection prophylaxis was given Burgess was in place and draining clear urine SCDs were in place After verification of adequacy of anesthesia, a Pfannansteil incision was made 2 cm above the symphysis pubis and carried laterally on the skin and it was carried down to subcutaneous tissue and then to the rectus fascia, the rectus fascia was from underlying muscles by sharp and blunt dissection Peritoneal cavity was entered atraumatically Akexis extra large retractor was placed Lower uterine segment was well-formed and uterus was dextrorotated partially and was held on the R side to be able to make a low transverse incision in THELMA , Incision made in the lower uterine segment, and amniotic sac ruptured, clear stained amniotic fluid Baby was delivered as cephalic with fundal pressure and head elevation and a LB/Male delivered Cord clamped after 1 minute and cut and baby received by the waiting nursery team Cord blood collected, placenta removed spontaneously and partially manually Uterine cavity clean dry of any remaining membranes with a dry lap, uterine incision closed with the help of 0 Monocryl in 2 layers in a running , interlocking fashion . Hemostasis is good Uterus is firm Both tubes and ovaries look normal Instrument needle and sponge count is correct, hemostasis was checked for again on the uterine incision and it is confirmed Peritoneal closure done with 2-0 Vicryl Rectus abdominis muscles approximated with 2-0 Vicryl/ monocryl Rectus fascia approximated with 0 Vicryl running sutures Subcutaneous tissue irrigated closed with and approximated with 3-0 plain catgut Skin approximated with 4-0 Monocryl. Tape dressing applied with Dermabond ABD dressing placed on top Burgess is draining clear urine EBL is 600 cc Patient delivered a liveborn male Apgars are 8 and 9 Patient tolerated procedure well and was brought to PACU in a stable condition , urine is clear in the Burgess bag . Specimen: none Estimated blood loss (ml): 600 Complications: none Narrative: see procedure Surgical staff Rolando MCDANIEL Operation Date: 09/05/25 12:45 <No data on this case meets the specified criteria> Diagnosis Problem List Completed Was Problem List Reviewed/Reconciled?: Yes
--- NOTE | 2025-09-05 08:53 | PD.LDDELS ---
Data (Lin) Data Hx Section: Yes : 2 : 0 Livin Abortions: Spontaneous & Theraputic: 0 Delivery Data (Lin) Labor Data Induction/Augmentation Agent: None ROM date: 09/05/25 ROM time: 08:14 Amniotic membrane rupture type: Artificial Amniotic fluid description: Clear Delivery Data EDC: 09/10/25 EDC calculated by:: ultrasound Onset of labor date: 09/05/25 Onset of labor time: 08:14 Complete dilation date: 09/05/25 Complete dilation time: 08:14 delivery date: 09/05/25 delivery time: 08:15 Placenta delivery date: 09/05/25 Placenta delivery time: 08:17 Stage 1 total time: Labor - Stage 1 Duration 0 minutes Delivered by: Wing Delivery nurse: Heidi Wigginsorn nurse: Vinicius Vending Attendant at delivery: No Support person(s) at delivery: FOB Other staff at delivery: Gurwinder, SOM Delatorre, OB Or tech Tosha, MAYELIN Juan OR tech student Delivery Method Delivery method: Low Transverse Presentation: Vertex Anesthesia Type Anesthesia Type: Spinal Anesthesia type: Spinal Delivery Room Medications Delivery room medications: Pitocin 20 u IV Placenta Placenta delivery description: Spontaneous and Manual Removal (partially manual ) Cord blood sent to lab: Yes cord blood collection: Cord Blood Type Episiotomy Episiotomy description: None Umbilical Cord cord description: 3 Vessels Data (Lin) Alton Data order: 1 's gender: Male Identification band number: [id number] weight (gms): 3840 g Weight (pounds): 8 lbs and 7.5 ozs Alton length: 53.34 cm 1 minute: 9 5 minutes: 9
[2025-09-05] MEDS: ONDANSETRON INJ 2 MG/ML INJ 2 ML 4 MG IVP (09:31)
[2025-09-05] MEDS: KETOROLAC INJ 30 MG/ML VIAL IVP ×2 (17:27→23:42)
[2025-09-05] MEDS: OXYTOCIN in NS 20 units 20 UNIT/1,000 ML BAG 125 UNIT IV (17:28)
[2025-09-06 04:00] VITALS: BP 106/61; PULSE 71; RESP 16; TEMP 36.8; O2SAT 97
[2025-09-06] MEDS: KETOROLAC INJ 30 MG/ML VIAL IVP ×2 (05:54→12:58)
[2025-09-06 06:00] LABS: Basophils # (Auto) 0.0 Thou/mm3 (0.0-0.2); Basophils % (Auto) 0 % (0-2.5); Eosinophils # (Auto) 0.1 Thou/mm3 (0.0-0.5); Eosinophils % (Auto) 1 % (0-10); Hematocrit 31.3 % (36.0-46.0); Hemoglobin 10.4 g/dL (12.0-16.0); Immature Granulocytes Auto 0.04 Thou/mm3 (0.00-0.00); Lymphocytes # (Auto) 1.2 Thou/mm3 (1.0-4.8); Lymphocytes % (Auto) 16 % (10-50); Mean Corpuscular HGB Conc 33.2 g/dl (31.0-37.0); Mean Corpuscular Hemoglobin 28.7 pg (25.0-35.0); Mean Corpuscular Volume 87 fL (80-100); Monocytes # (Auto) 0.5 Thou/mm3 (0.0-0.8); Monocytes % (Auto) 7 % (0-12); Neutrophils # (Auto) 5.4 Thou/mm3 (1.8-7.7); Neutrophils % (Auto) 75 % (37-80); Nucleated Red Blood Cell # 0.00 Thou/mm3 (0.00-0.00); Nucleated Red Blood Cell % 0 /100 WBC (0); Platelet Count 161 Thou/mm3 (140-440); RDW Standard Deviation 50.6 fL (36.4-46.3); Red Blood Count 3.62 Miln/mm3 (4.00-5.20); White Blood Count 7.2 Thou/mm3 (3.6-11.0)
--- NOTE | 2025-09-06 07:49 | ESPR_ITS ---
Subjective Subjective Interval history: Delivery type: Patient doing well this morning. No acute complaints. Ambulating, tolerating p.o., and voiding without difficulty. HTN/Pre-E screen negative: No CP, SOB, PELAYO, visual changes, RUQ pain. : Yes Lochia: diminishing Bowel: Flatus + / BM + UOP: Adequate Exam Vital Signs Temp Pulse Resp BP Pulse Ox O2 Del Method 98.2 F 71 16 106/61 97 Room Air 09/06/25 04:00 09/06/25 04:00 09/06/25 04:00 09/06/25 04:00 09/06/25 04:00 09/06/25 04:00 Constitutional Constitutional: no acute distress Routine HEENT Exam Head: Present normocephalic and atraumatic Eye: Present EOMI and PERRL ENT: Present mucous membranes moist Routine Neck Exam Neck: Present supple and trachea midline Routine Respiratory Exam Respiratory: Present chest non-tender, lungs clear, normal breath sounds and no resp distress Routine Cardiovascular Exam Cardiovascular: Present RRR Routine Abdominal Exam Abdominal: Present soft and normoactive bowel sounds Routine Extremities Exam Extremities: Present full ROM Routine Skin Exam Skin: Present intact, dry and warm Routine Neurological Exam Neurological: Present alert, oriented X3 and CN II-XII intact Routine Psychiatric Exam Psychiatric: Present normal affect and normal thought process Objective Labs 09/06/25 05:35 Labs: Laboratory Results - last 24 hr 09/06/25 05:35 WBC 7.2 RBC 3.62 L Hgb 10.4 L D Hct 31.3 L MCV 87 MCH 28.7 MCHC 33.2 RDW Std Deviation 50.6 H Plt Count 161 D Neut % (Auto) 75 Lymph % (Auto) 16 [place] % (Auto) 7 Eos % (Auto) 1 Baso % (Auto) 0 Neut # (Auto) 5.4 Lymph # (Auto) 1.2 [place] # (Auto) 0.5 Eos # (Auto) 0.1 Baso # (Auto) 0.0 Immature Gran # (Auto) 0.04 H Absolute Nucleated RBC 0.00 Immature Gran % 1 H Nucleated RBC % 0 Assessment & Plan Problem List (1) Pelvic pressure in female: Status: Acute (2) Advanced maternal age (AMA) in : Status: Acute (3) Maternal care for unspecified type scar from previous delivery: Status: Acute (4) 39 weeks gestation of : Status: Acute (5) delivery delivered: Status: Acute Assessment and plan: 1. Continue routine /post-op care 2. Labs reviewed, cbc appropriate 3. Remove dressing/Burgess 4. Encourage to ambulate, shower 5. Encourage PO intake, breast feeding Time Spent With Patient Time: Total time spent is greater than 50% in coordination of care (as documented) at patient's floor/unit and/or counseling patient:
--- NOTE | 2025-09-06 08:35 | PD.LDPPPRG ---
Subjective Subjective Interval history: Delivery type: Patient doing well this morning. No acute complaints. Ambulating, tolerating p.o., and voiding without difficulty. HTN/Pre-E screen negative: No CP, SOB, PELAYO, visual changes, RUQ pain. : Breast-feeding yes Lochia: diminishing Bowel: Flatus + / BM + UOP: Voiding freely Exam Vital Signs Temp Pulse Resp BP Pulse Ox O2 Del Method 98.2 F 71 16 106/61 97 Room Air 09/06/25 04:00 09/06/25 04:00 09/06/25 04:00 09/06/25 04:00 09/06/25 04:00 09/06/25 04:00 Constitutional Constitutional: no acute distress Routine HEENT Exam Head: Present normocephalic and atraumatic Eye: Present EOMI and PERRL ENT: Present mucous membranes moist Routine Neck Exam Neck: Present supple and trachea midline Routine Respiratory Exam Respiratory: Present chest non-tender, lungs clear, normal breath sounds and no resp distress Routine Cardiovascular Exam Cardiovascular: Present RRR Routine Abdominal Exam Abdominal: Present soft and normoactive bowel sounds Routine Extremities Exam Extremities: Present full ROM Routine Skin Exam Skin: Present intact, dry and warm Routine Neurological Exam Neurological: Present alert, oriented X3 and CN II-XII intact Routine Psychiatric Exam Psychiatric: Present normal affect and normal thought process Objective Labs 09/06/25 05:35 Labs: Laboratory Results - last 24 hr 09/06/25 05:35 WBC 7.2 RBC 3.62 L Hgb 10.4 L D Hct 31.3 L MCV 87 MCH 28.7 MCHC 33.2 RDW Std Deviation 50.6 H Plt Count 161 D Neut % (Auto) 75 Lymph % (Auto) 16 [place] % (Auto) 7 Eos % (Auto) 1 Baso % (Auto) 0 Neut # (Auto) 5.4 Lymph # (Auto) 1.2 [place] # (Auto) 0.5 Eos # (Auto) 0.1 Baso # (Auto) 0.0 Immature Gran # (Auto) 0.04 H Absolute Nucleated RBC 0.00 Immature Gran % 1 H Nucleated RBC % 0 Assessment & Plan Problem List (1) Pelvic pressure in female: Status: Acute (2) Advanced maternal age (AMA) in : Status: Acute (3) Maternal care for unspecified type scar from previous delivery: Status: Acute (4) 39 weeks gestation of : Status: Acute (5) delivery delivered: Status: Acute Assessment and plan: 1. Continue routine /post-op care 2. Labs reviewed, cbc appropriate 3. Remove dressing/[place] 4. Encourage to ambulate, shower 5. Encourage PO intake, breast feeding Time Spent With Patient Time: Total time spent is greater than 50% in coordination of care (as documented) at patient's floor/unit and/or counseling patient:
[2025-09-06 08:45] VITALS: BP 102/65; PULSE 74; RESP 17; TEMP 36.8; O2SAT 96
[2025-09-06] MEDS: DOCUSATE SOD 100 MG CAPSULE PO (08:45)
[2025-09-06 16:45] VITALS: BP 114/73; PULSE 74; RESP 16; TEMP 37.2; O2SAT 97
[2025-09-06] MEDS: HYDROcodone/APAP 5/325 TABLET 1 TAB PO ×2 (18:46→23:54)
[2025-09-06 19:55] VITALS: BP 114/73; PULSE 76; RESP 16; TEMP 37; O2SAT 97
[2025-09-07 03:43] VITALS: BP 111/66; PULSE 72; RESP 16; TEMP 36.9; O2SAT 97
[2025-09-07] MEDS: HYDROcodone/APAP 5/325 TABLET 1 TAB PO (03:57)
[2025-09-07 07:30] VITALS: BP 120/77; PULSE 79; RESP 20; TEMP 36.8; O2SAT 96
[2025-09-07] MEDS: DOCUSATE SOD 100 MG CAPSULE PO (08:40)
--- NOTE | 2025-09-07 09:35 | PD.LDPPPRG ---
Subjective Subjective Interval history: The patient is a 35-year-old G2 now P2002 postoperative day #2 status post repeat low-transverse section 09/05/2025 at about 8:15 in the morning. This morning, the patient is resting comfortably in bed. She is voiding, ambulating, and tolerating pain medication by mouth. Her bleeding is minimal. She is exclusively breast-feeding. No fevers or chills no dysuria. She is [place]i-speaking only and her entire physical exam and interview was conducted with Chuck Erwin&Veronica PRUITT present in the room. Exam Vital Signs Temp Pulse Resp BP Pulse Ox O2 Del Method 98.3 F 79 20 120/77 96 Room Air 09/07/25 07:30 09/07/25 07:30 09/07/25 07:30 09/07/25 07:30 09/07/25 07:30 09/07/25 07:30 Narrative Exam Patient is alert and orient x 3 she is pleasant in no apparent distress Abdomen is soft nontender, fundus is at umbilicus Incision clean dry and intact with Dermabond type dressing in place Extremities show no cyanosis clubbing or edema Objective Labs 09/06/25 05:35 Assessment & Plan Problem List (1) 39 weeks gestation of : Status: Acute (2) care following delivery: Status: Acute Assessment and plan: Discharged home postoperative day #2 in stable condition. Discharge medications included [place] 1-2 p.o. every 4-6 hours as needed. Motrin 800 mg p.o. every 8 hours as needed. Patient was told to call with heavy bleeding fevers chills or severe depression. She will follow-up in the clinic in 1 week for postop check. Time Spent With Patient Time: Total time spent is greater than 50% in coordination of care (as documented) at patient's floor/unit and/or counseling patient: Time with patient: less than 15 minutes
[2025-09-07] MEDS: HYDROcodone/APAP 5/325 TABLET 2 TAB PO (09:38)
--- NOTE | 2025-09-07 09:40 | PD.LDDS ---
DS: Providers Provider Date of admission: 09/05/25 04:53 Primary care physician: Jim Hampton MD Admitting Provider: Destiny Dimas MD Attending Provider on Admission: Jefferson Mccall MD Consults: 09/05/25 08:55 Referral Routine Comment: Attending Provider on DC: Shanna Renee MD ([facility]) Discharging Provider: Shanna Renee MD ([facility]) Anticipated date of discharge: 09/07/25 DS: Diagnosis Discharge Diagnosis (1) care following delivery: Status: Acute Assessment & Plan: Discharge home postoperative day #2 in stable condition. Discharge instructions including no heavy lifting intercourse tampons douching or heavy exercise x 6 weeks. Home on [place] and Motrin. Follow-up in 1 week. (2) 39 weeks gestation of : Status: Acute (3) Term delivered: Status: Acute Problem List Completed Was Problem List Reviewed/Reconciled?: Yes Summary/Hosp Course Brief History: The patient is a 35-year-old -0-0-1 admitted 08/25/1725 for an elective repeat section at 39-2/7 weeks. She was admitted by Dr. Dimas. Please see history and physical for further details. Hospital course: Patient underwent an uncomplicated repeat low-transverse section on 09/05/2025 at approximately 8:[address] Dimas performed her surgery. See op report for further details. Her postoperative course was uncomplicated. Predelivery hemoglobin was 12.4 postdelivery hemoglobin 10.4. Her vital signs were stable. By postoperative day #2, the patient was ambulating, tolerating a general diet, voiding, and breast-feeding. She was discharged home postoperative day #2 in stable condition. Peripartum Data Delivery Method: Low Transverse Episiotomy Description: None Procedures: Procedures Operation Date: 09/05/25 07:45 Actual Procedure Side Surgeon p in OB Destiny Dimas MD Operation Date: 09/05/25 12:45 <No data on this case meets the specified criteria> complications: none Status at Discharge Cognitive/behavioral status at discharge: Patient is alert and orient x 3 in no apparent distress Functional status at discharge: independent ambulation Overall status at discharge: patient is progressing back to baseline Time Spent with Patient Time attestation: Total time spent providing and/or coordinating discharge services: Time spent: Less than 30 minutes Specific discharge activities: No heavy lifting, intercourse, tampons, douching, or exercise x 6 weeks. Follow-up in 1 to 2 weeks. Exam Vital Signs Temp Pulse Resp BP Pulse Ox O2 Del Method 98.3 F 79 20 120/77 96 Room Air 09/07/25 07:30 09/07/25 07:30 09/07/25 07:30 09/07/25 07:30 09/07/25 07:30 09/07/25 07:30 Narrative Exam Fundus is firm nontender. Incision clean dry and intact with Dermabond dressing in place Extremities show no significant edema or erythema Constitutional Constitutional: no acute distress and cooperative Discharge Plan Plan Patient Disposition: HOME (Self Care) Disposition Comment: Stable Patient condition on transfer: Stable Prescriptions/Referrals Prescriptions/Med Rec: New hydrocodone-acetaminophen 5-325 mg tablet 1 tab PO Q4HR MDD 4 PRN (Reason: Patient rated pain 7 to 8) Qty: 10 0RF acetaminophen 325 mg Tablet 650 mg PO Q6HR PRN (Reason: Patient rated pain of 3) Qty: 60 0RF hydrocodone-acetaminophen 5-325 mg Tablet 2 tab PO Q6HR MDD 4 PRN (Reason: Patient rated pain 9 to 10) Qty: 15 0RF docusate sodium 100 mg Capsule 100 mg PO QDAY Qty: 6 0RF ibuprofen 400 mg Tablet 800 mg PO Q8HR PRN (Reason: PAIN 1-6 OR FEVER > 101) Qty: 6 0RF Continued Vitamin 27 mg iron- 800 mcg tablet 1 tab PO QDAY Referrals: Jim Hampton MD [Primary Care Provider, Family Practice] Patient/Caregiver Discharge Instructions Discharge Activity: activity as tolerated Other Discharge Activity Instructions:: No heavy lifting, intercourse, tampons or douching x 6 weeks Call with heavy vaginal bleeding, fevers, or depression. Follow-up in clinic in 1 to 2 weeks Other Discharge Diet Instructions: General diet Education Materials: After Delivery Concerns, Breast Care After , : Caring for Yourself, C Section Dc Print Language: Cuban Activity Restrictions/Additional Instructions: No heavy lifting, intercourse, tampons douching or bathtubs x 6 weeks. No heavy exercise x 6 weeks. Stand Alone Forms: [facility]ra Award Info., Patient Portal Info Letter Discharge Order Discharge Orders: Discharge (Routine); Ordered 09/07/25 Ordered By: Shanna Renee ([facility]) Planned Discharge Date 09/07/25
--- NOTE | 2025-09-07 11:21 | PC.SS ---
DEPARTURE CLERK conducted bedside contact with the patient to address nursing referral indicating patient was late to care at 18 weeks.? DEPARTURE CLERK utilized translation services.? DEPARTURE CLERK introduced self and role.? At bedside with patient was Pascual SUTTON.? Patient gave permission for FOB to be present during discussion.? DEPARTURE CLERK reviewed basis of referral.? Patient confirmed late to care (18 weeks) due to the patient not being aware of .? Patient stated no initial presence of symptoms indicating .? Upon confirmation, initial OB appointment made after 12 week timeline.? OB services conducted with Dr. Dimas.? Patient reports consistency with OB appointments.? , Zachery; is the patient?s second child.? Infant delivered via . ?Patient is aligned with WIC. ?Patient is not receiving SNAP or TANF.? Patient denies history of alcohol/drug abuse.? Patient denies CWS intervention.? Patient denies episodes of domestic violence.? Patient denies possessing a history of mental health, reports no current possession of depression or anxiety.? Patient has access to appropriate supplies and equipment; to include a car seat.? FOB will provide transportation upon discharge.? Patient describes possessing support system consisting of FOB and extended family.? DEPARTURE CLERK provided the patient with community resources to include Parenting Network and Warm Line.? No further intervention required at this time, social services analyst will be available to address any further concerns.? DEPARTURE CLERK updated bedside nurse.?
== END 2025-09-07 12:00 | disposition home or self-care (01) | DRG 540 ==
LOC: S4SX 10:43 → S4NX 18:04
PROVIDERS: Admitting Provider Obstetrics & Gynecology; PCP Family Medicine; Visit Provider Obstetrics & Gynecology
PROC: 10D00Z1 Extraction of Products of Conception, Low, Open Approach (ICD-10-PCS; CPT 59514; principal; 2025-09-05 07:30)
DX: O34.211 Maternal care for low transverse scar from previous cesarean delivery (principal); O99.214 Obesity complicating childbirth; Z37.0 Single live birth; Z3A.39 39 weeks gestation of pregnancy
CPT/HCPCS: 36415; 59409; 80307; 85025; 86780; 86850; 86900; 86901; 94762; A4217; A4314; A4649; J0689; J1885; J2274; J2371; J2405; J2590; J2765; J3010; J3290; J3490; J7120; A9270; J2270